=== PATIENT | female | born 1970 ===

== ENCOUNTER → 2018-03-25 | Outpatient (CLI) | payer MEDICAID, OTHER ==
[~2018-03-25] MED LIST: HYDR-3240 PO; LIDOCAINE 2% TP; METH500T7 PO; NABU500T PO
== END | disposition home or self-care (01) ==
LOC: CFH 15:18
PROVIDERS: ATTEND Physician Assistant
DX: N13.30 Unspecified hydronephrosis (principal)
CPT/HCPCS: 76770